=== PATIENT | male | born 1980 | race Caucasian/White ===

== ENCOUNTER 2018-09-10 15:36 | Emergency (ER) | payer OTHER ==
[~2018-09-10] VITALS: Ht 170.2 cm; Wt 72.6 kg
[~2018-09-10 15:36] MED LIST: ACEASPCAF PO; ACET325 PO; AZIT250 PO; CEPH500 PO; CLIN300 PO; HYDACE5 PO; HYDACE7.5 PO; IBUHYD PO; IBUP200 PO; IBUP800; PENVK500 PO; PRED10 PO; PROM25 PO; RXCLIN PO; SULTRIDS PO
[2018-09-10] MEDS ORDERED: ATOM10 PO (16:16)
== END 2018-09-10 17:43 | disposition home or self-care (01) ==
LOC: ER 15:36
DX: S61.412A Laceration without foreign body of left hand, initial encounter (principal); W26.0XXA Contact with knife, initial encounter; Z88.1 Allergy status to other antibiotic agents; Z79.899 Other long term (current) drug therapy; F17.210 Nicotine dependence, cigarettes, uncomplicated
CPT/HCPCS: 12002; 99282-25

== ENCOUNTER 2022-04-09 18:01 | Emergency (ER) | payer OTHER ==
[~2022-04-09] VITALS: Ht 170.2 cm; Wt 72.6 kg
[~2022-04-09 18:01] MED LIST changes: +ATOM10 PO; +Norco 5-325 Ta1 EACH PO
[2022-04-09] MEDS ORDERED: IBUP800 PO (21:08)
[2022-04-09] MEDS ORDERED: DOXY100 PO (21:08)
[2022-04-09] MEDS ORDERED: HYDR1TAB94 PO (21:08)
== END 2022-04-09 21:27 | disposition home or self-care (01) ==
LOC: ER 18:01
DX: S02.2XXA Fracture of nasal bones, initial encounter for closed fracture (principal); F17.200 Nicotine dependence, unspecified, uncomplicated; V89.2XXA Person injured in unspecified motor-vehicle accident, traffic, initial encounter
CPT/HCPCS: 36415; 70450; 70486; 72125; A9270; J1885

== ENCOUNTER 2022-11-14 00:21 | Emergency (ER) | payer OTHER ==
[~2022-11-14] VITALS: Ht 170.2 cm; Wt 61.2 kg
[~2022-11-14 00:21] MED LIST changes: +DOXY100 PO; +HYDR1TAB94 PO; +IBUP800 PO
[2022-11-14] MEDS ORDERED: LIDO700A20 TOP (03:20)
== END 2022-11-14 03:34 | disposition home or self-care (01) ==
LOC: ER 00:21
DX: T40.2X1A Poisoning by other opioids, accidental (unintentional), initial encounter (principal); R07.89 Other chest pain; Z88.0 Allergy status to penicillin; F17.210 Nicotine dependence, cigarettes, uncomplicated
CPT/HCPCS: 71046; 93005; 93010; 96372; 99284-25; A9270; J1885

== ENCOUNTER 2022-11-16 17:12 | Emergency (ER) | payer OTHER ==
[~2022-11-16] VITALS: Ht 170.2 cm; Wt 59.0 kg
[~2022-11-16 17:12] MED LIST changes: +LIDO700A20 TOP
[2022-11-16 17:58] LABS: BASOPHILS ABSOLUTE AUTO 0.05 K/mm3 (0.00-0.23); BASOPHILS PERCENT AUTO 1 % (0-2); EOSINOPHILS ABSOLUTE AUTO 0.05 K/mm3 (0.00-0.68); EOSINOPHILS PERCENT AUTO 1 % (0-6); Hematocrit 45.2 % (37.0-53.0); Hemoglobin 16.1 g/dL (13.5-17.5); IMMATURE GRAN ABSOLUTE AUTO 0.03 K/mm3 (0.00-0.10); IMMATURE GRAN PERCENT AUTO 0 % (0-1); LYMPHOCYTES ABSOLUTE AUTO 1.04 K/mm3 (0.84-5.20); LYMPHOCYTES PERCENT AUTO 12 % (21-46); MONOCYTES ABSOLUTE AUTO 0.77 K/mm3 (0.16-1.47); MONOCYTES PERCENT AUTO 9 % (4-13); Mean Corpuscular HGB 31.6 pg (26.0-34.0); Mean Corpuscular HGB Conc 35.6 g/dL (31.5-36.5); Mean Corpuscular Volume 89 fL (80-100); Mean Platelet Volume 9.8 fL (9.1-12.4); NEUTROPHILS ABSOLUTE AUTO 6.43 K/mm3 (1.96-9.15); NEUTROPHILS PERCENT AUTO 77 % (41-73); Platelet Count 256 K/mm3 (150-400); RDW Coefficient Variation 12.4 % (11.7-14.2); White Blood Cell Count 8.37 K/mm3 (4.00-11.30)
[2022-11-16 18:17] LABS: Albumin, Blood 3.4 g/dL (3.4-5.0); Albumin/Globulin Ratio 0.8 (0.8-1.8); Bilirubin, Total 0.5 mg/dL (0.1-1.0); Bun/Creatinine Ratio 14.6 (12.0-20.0); Calcium, Blood 9.3 mg/dL (8.5-10.1); Creatinine, Blood 0.89 mg/dL (0.60-1.20); Globulin, Blood 4.1 g/dL (2.2-4.0); Total Protein, Blood 7.5 g/dL (6.4-8.2)
[2022-11-16 19:59] LABS: Influenza A, PCR NEGATIVE (NEGATIVE); Influenza B, PCR NEGATIVE (NEGATIVE); SARS-Cov-2 (COVID-19) PCR, MMC NEGATIVE (NEGATIVE)
[2022-11-16 21:54] LABS: Resp Syncytial Virus, PCR POSITIVE (NEGATIVE)
== END 2022-11-16 19:59 | disposition home or self-care (01) ==
LOC: ER 17:12
PROVIDERS: Physician Assistant; Student in an Organized Health Care Education/Training Program
DX: M79.10 Myalgia, unspecified site (principal); R42 Dizziness and giddiness; R51.9 Headache, unspecified; R07.89 Other chest pain; I10 Essential (primary) hypertension; Z88.0 Allergy status to penicillin; F17.210 Nicotine dependence, cigarettes, uncomplicated
CPT/HCPCS: 0241U; 36415; 71046; 80053; 85025; 93005; 93010; 96372; 99284-25; A9270; J1885

== ENCOUNTER 2023-05-13 11:41 | Emergency (ER) | payer OTHER ==
[~2023-05-13] VITALS: Ht 170.2 cm; Wt 63.5 kg
[2023-05-13] MEDS ORDERED: ATOM40 PO (12:58)
[2023-05-13] MEDS ORDERED: METH40 PO (12:59)
[2023-05-13 14:00] VITALS: BP 142/96
== END 2023-05-13 14:00 | disposition home or self-care (01) ==
LOC: ER 11:41
DX: J02.0 Streptococcal pharyngitis (principal); F17.210 Nicotine dependence, cigarettes, uncomplicated; Z20.822 Contact with and (suspected) exposure to COVID-19
CPT/HCPCS: 87430; 96372; 99283; J0561

== ENCOUNTER 2023-11-03 12:26 | Emergency (ER) | payer OTHER ==
[~2023-11-03] VITALS: Ht 170.2 cm; Wt 65.8 kg
[~2023-11-03 12:26] MED LIST changes: +ATOM40 PO; +METH40 PO
[2023-11-03 13:20] VITALS: BP 185/110
[2023-11-03] MEDS ORDERED: Methadone HCL 10 MG TAB PO ONE (13:35)
== END 2023-11-03 13:49 | disposition home or self-care (01) ==
LOC: ER 12:26
DX: Z76.0 Encounter for issue of repeat prescription (principal); F11.21 Opioid dependence, in remission; F17.210 Nicotine dependence, cigarettes, uncomplicated; F15.90 Other stimulant use, unspecified, uncomplicated; Z79.899 Other long term (current) drug therapy; Z88.0 Allergy status to penicillin
CPT/HCPCS: 99283; A9270

== ENCOUNTER 2023-11-04 10:39 | Emergency (ER) | payer OTHER ==
[~2023-11-04] VITALS: Ht 170.2 cm; Wt 65.8 kg
[2023-11-04] MEDS ORDERED: Methadone HCL 10 MG TAB PO ONE (11:00)
[2023-11-04 11:32] VITALS: BP 150/108
== END 2023-11-04 12:03 | disposition home or self-care (01) ==
LOC: ER 10:39
DX: Z76.0 Encounter for issue of repeat prescription (principal); F11.21 Opioid dependence, in remission; F17.210 Nicotine dependence, cigarettes, uncomplicated; Z88.0 Allergy status to penicillin
CPT/HCPCS: 99281; A9270

== ENCOUNTER 2023-11-05 09:33 | Emergency (ER) | payer OTHER ==
[~2023-11-05] VITALS: Ht 170.2 cm; Wt 65.8 kg
[2023-11-05 09:49] VITALS: BP 126/94
[2023-11-05] MEDS ORDERED: Methadone HCL 10 MG TAB PO ONE (09:55)
== END 2023-11-05 10:21 | disposition home or self-care (01) ==
LOC: ER 09:33
DX: Z76.0 Encounter for issue of repeat prescription (principal); F11.21 Opioid dependence, in remission; Z88.1 Allergy status to other antibiotic agents; F17.210 Nicotine dependence, cigarettes, uncomplicated
CPT/HCPCS: 99281; A9270